=== PATIENT | female | born 1950 | race Hispanic/Latino ===

== ENCOUNTER 2023-02-26 11:38 | Emergency (ER) | payer OTHER, MEDICARE ==
[~2023-02-26] VITALS: Ht 177.8 cm; Wt 63.5 kg
[2023-02-26] MEDS ORDERED: AMOX-427 PO (14:02)
[2023-02-26] MEDS ORDERED: IBUP-2077 PO (14:02)
[2023-02-26 14:19] VITALS: BP 164/72; PULSE 73; RESP 16; O2SAT 97
== END 2023-02-26 14:28 | disposition home or self-care (01) ==
LOC: EDH 11:38
DX: K04.7 Periapical abscess without sinus (principal); I10 Essential (primary) hypertension; E78.00 Pure hypercholesterolemia, unspecified; Z90.710 Acquired absence of both cervix and uterus

== ENCOUNTER → 2024-02-07 | Outpatient (CLI) | payer OTHER, MEDICARE ==
[~2024-02-07] MED LIST: AMOX-427 PO; IBUP-2077 PO
[2024-02-07 12:18] LABS: CREATININE 0.8 mg/dL (0.5-1.0)
== END | disposition home or self-care (01) ==
LOC: LAB 11:15
PROVIDERS: ATTEND Student in an Organized Health Care Education/Training Program
DX: R26.81 Unsteadiness on feet (principal)
CPT/HCPCS: 36415; 80048

== ENCOUNTER → 2024-02-22 | Outpatient (CLI) | payer OTHER, MEDICARE ==
[~2024-02-22] MED LIST changes: +GADOTERATE MEGLUMINE 10 MMOL/20 ML VIAL IV ONE
== END | disposition home or self-care (01) ==
LOC: RAH 08:53
PROVIDERS: ATTEND Student in an Organized Health Care Education/Training Program
DX: G35 Multiple sclerosis (principal); R26.81 Unsteadiness on feet
CPT/HCPCS: 70553; A9575

== ENCOUNTER → 2024-04-17 | Outpatient (CLI) | payer OTHER, MEDICARE ==
[~2024-04-17] MED LIST changes: -GADOTERATE MEGLUMINE 10 MMOL/20 ML VIAL IV ONE
[2024-04-17 16:49] LABS: ALBUMIN 3.5 g/dL (3.5-5.0); BILIRUBIN,TOTAL 0.6 mg/dL (0.2-1.0); CREATININE 0.9 mg/dL (0.5-1.0); POTASSIUM 4.2 mmol/L (3.5-5.1); TOTAL PROTEIN, SERUM 8.6 g/dL (6.0-8.3)
== END | disposition home or self-care (01) ==
LOC: LAB 14:15
PROVIDERS: ATTEND Student in an Organized Health Care Education/Training Program
DX: R53.83 Other fatigue (principal)
CPT/HCPCS: 36415; 80053

== ENCOUNTER → 2024-04-25 | Outpatient (CLI) | payer OTHER, MEDICARE ==
[~2024-04-25] MED LIST changes: +IOHEXOL 350 MG/ML 100ML INFUS..BTL IV ONE
--- NOTE | 2024-04-25 11:25 | HMCIMG ---
CT CARDIAC ANGIO W/CONT. CCTA HISTORY: 60 COMPARISON: None TECHNIQUE: Multiple sequential axial images of the chest were obtained along with the CT angiogram of the chest study. Patient was given 100 cc of Omnipaque through intravenous route. FINDINGS: There is no evidence of pulmonary nodule or parenchymal disease. No pleural effusion or pericardial effusion is seen. There is no evidence of pneumothorax. There are normal size mediastinal and hilar lymph nodes. The heart is not enlarged. Degenerative changes of the thoracolumbar spine are present. IMPRESSION: 1. No evidence of pulmonary nodule or effusion is seen. Please see CT angiogram report of coronary arteries.
== END | disposition home or self-care (01) ==
LOC: RAH 09:56
PROVIDERS: ATTEND Student in an Organized Health Care Education/Training Program
DX: R53.83 Other fatigue (principal); M47.815 Spondylosis without myelopathy or radiculopathy, thoracolumbar region
CPT/HCPCS: 75574; Q9967

== ENCOUNTER 2024-12-03 18:09 | Emergency (ER) | payer MEDICARE ==
[~2024-12-03] VITALS: Ht 152.4 cm; Wt 71.2 kg
[~2024-12-03 18:09] MED LIST changes: -IOHEXOL 350 MG/ML 100ML INFUS..BTL IV ONE
--- NOTE | 2024-12-03 18:36 | ERN ---
ED Note History of Present Illness Stated Complaint: ALLERGIC REACTION Chief Complaint: Allergic Reaction Time Seen by MD: 18:14 Time Seen by Midlevel: 18:14 Dictation: Patient is a 74-year-old female with a history of hypertension who presents to the emergency department with complaints of wounds to the left side of her face onset Monday. Patient reports wound as painful when burning. Denies any trauma, denies any fevers. Allergies: Coded Allergies: No Known Drug Allergies (Unverified Allergy, Unknown, 02/26/23) Home Meds Active Scripts Prednisone (Prednisone) 50 Mg Tablet, 1 TAB PO DAILY for 7 Days, #7 TAB 0 Refills Prov:MCNALLYLISA JUSTICE HOSTLER HELPER 12/03/24 Valacyclovir HCl (Valacyclovir) 1,000 Mg Tablet, 1 TAB PO TID for 7 Days, #21 TAB 0 Refills Prov:MCNALLY,LISA HOSTLER HELPER 12/03/24 Ibuprofen (Ibuprofen 800 mg Tab) 800 Mg Tab, 800 MG PO Q6H PRN for PAIN, #30 TAB Prov:JANNET GALEANO MD 02/26/23 Amoxicillin/Potassium Clav (Augmentin Xr 1,000-62.5 Tab) 1,000 Mg-62.5 Mg Tab.er.12h, 1 EACH PO BID for 7 Days, #14 TAB Prov:JANNET GALEANO MD 02/26/23 Past Medical History Past Medical History: High Cholesterol, Hypertension Surgical History: Hysterectomy Social History: Negative RN Note Reviewed/Agreed w/PFSH: Yes Review of System Dictation Constitutional: Negative for fever,chills, and weight loss Eyes: Negative for injury, pain,redness, and discharge ENT: Negative for injury,pain or swelling Cardiovascular: Negative for chest pain, palpitations, and edema Respiratory: Negative for shortness of breath, cough, and wheezing, Abdomen/GI: Negative for abdominal pain, nausea, vomiting, diarrhea, and constipation Back: Negative for injury and pain : Negative for injury, bleeding and discharge MS/Extremity: Negative for injury and deformity Skin: Negative for rash, and discoloration positive for left-sided facial rash Neuro: Negative for headache, weakness, numbness, tingling, and seizure Psych: Negative for suicide ideation, homicidal ideation, and hallucinations Initial Vital Sign VS Vital Signs Date Time Temp Pulse Resp B/P (MAP) Pulse Ox O2 Delivery O2 Flow Rate FiO2 12/03/24 18:15 98.6 88 18 188/72 98 12/03/24 18:15 Room Air* 0 21 Physical Exam Dictation Vital Signs reviewed General Appearance: Alert, oriented x 3, no acute distress, well developed, nourished. Head and Face: non-traumatic. Eyes: PERRL, pink conjunctivas, eyelid no trauma, anterior chamber with arcus senilis. Ears: Pinnas intact and no signs of trauma or erythema ear canals clear and no discharge TM no erythema Nose: No discharge, no bleeding. Oropharynx: Mouth normal, tongue pink. pharynx clear,no erythema, tonsils no exudates, no abscesses noted, mucous membrane moist Neck: Supple, non-tender, no thyromegaly, no masses, no JVD, no bruits Breast:Deferred Chest:No tenderness, no crepitus, no paradoxical movement, no retractions Lungs:Clear, well-ventilated, symmetric, no rales, no wheezing, no rhonchi, no stridor, good breath sounds bilaterally Heart: Regular rate, regular rhythm, no murmur, no gallops Vascular: no peripheral edema, Abdomen: Soft, positive bowel sounds, nondistended, no guarding, nontender, no rebound, no masses no hepatomegaly, no splenomegaly, no Blount's sign, no hernias. Rectal: Deferred Genital: Deferred Neurological: Normal speech, motor function intact, sensory function intact Musculoskeletal: Neck nontender, full range of motion, back nontender, full range of motion, Extremities: nontender, full range of motion Skin: Color pink, dry, no turgor,, no lacerations, no abrasions, no contusions. Vesicular wounds noted to left side facial area V1, V3 dermatomes, mild swelling to left lower lip Lymphatic: Deferred Results (Laboratory/Radiology) Labs Reviewed?: Yes ED Course ED Course Orders Procedure Category Date Status Time Methylprednisolone PHA 12/03/24 Complete Succ 125mg (Solu-Medr 18:30 Valacyclovir Hcl PHA 12/03/24 Complete (Valtrex) 18:30 Tetracaine Hcl PHA 12/03/24 Complete (Pontocaine 0.5% 18:30 Fluorescein Sodium PHA 12/03/24 Complete (Wleod-K-Rdcld At) 18:30 Ketorolac 60mg/2ml PHA 12/03/24 Complete (Toradol 60mg/2ml) 18:30 Methylprednisolone PHA 12/03/24 In Process Succ 125mg (Solu-Medr 20:00 Current Medications Medications (Trade) Dose Ordered Sig/Bhavya Route PRN Reason Start Time Stop Time Status Last Admin Dose Admin Fluorescein Sodium (Kdtqf-L-Nrisy At) 1 strip ONCE ONCE OP 12/03/24 18:30 12/03/24 18:34 DC 12/03/24 19:04 Ketorolac Tromethamine (toRADol 60MG/ 2ML) 30 mg ONCE ONCE IM 12/03/24 18:30 12/03/24 18:34 DC 12/03/24 19:04 Methylprednisolone Sodium Succinate (Solu-medROL 125MG) 125 mg ONCE ONCE IM 12/03/24 18:30 12/03/24 18:34 DC Methylprednisolone Sodium Succinate (Solu-medROL 125MG) 125 mg ONCE ONCE IM 12/03/24 20:00 12/03/24 20:01 12/03/24 19:47 Tetracaine HCl (Pontocaine 0.5% Ophth Soln) 1 OR 2 DROPS ONCE ONCE OP 12/03/24 18:30 12/03/24 18:34 DC 12/03/24 19:04 Valacyclovir HCl (ValtREX) 1,000 mg ONCE ONCE PO 12/03/24 18:30 12/03/24 18:34 DC 12/03/24 19:03 Vital Signs Date Time Temp Pulse Resp B/P (MAP) Pulse Ox O2 Delivery O2 Flow Rate FiO2 12/03/24 18:15 98.6 88 18 188/72 98 Room Air* 0 21 12/03/24 18:15 98.6 88 18 188/72 98 Medical Decision Making MDM Patient is a 74-year-old female with a history of hypertension who presents to the emergency department with complaints of wounds to the left side of her face onset Monday. Patient reports wound as painful when burning. Denies any trauma, denies any fevers. Patient's wound consistent with shingles. No lesions noted to eye on eye exam. Patient will be started on valacyclovir. Patient instructed to follow up with PCP. On physical exam patient is in no acute distress. No other lesions noted on the rest of the body. Differential diagnosis: Facial cellulitis, shingles, allergic reaction Need for hospitalization: Patient does not meet criteria for hospitalization. There are no social concerns with this patient. DX & DISP Disposition: Discharge Departure Impression: Primary Impression: Shingles Condition: Stable Scripts Valacyclovir HCl (Valacyclovir) 1,000 Mg Tablet 1 TAB PO TID for 7 Days, #21 TAB 0 Refills Prov: MCNALLY,LISA JACOBSON 12/03/24 Additional Instructions: Your lesions are consistent with shingles which is a virus called varicella zoster virus. Please avoid any people who are , premature baby's or anyone with a weak immune system. Make sure you wash your hands if you touch your face. Shingles can be contagious. Take your medications as prescribed. Make sure you follow up with your primary doctor. Follow up with Ophthalmology. FOLLOW-UP WITH PRIMARY CARE PROVIDER IN 1 TO 2 DAYS. TAKE MEDICATIONS DIRECTED HERE IN THE EMERGENCY ROOM. OKAY TO CONTINUE HOME MEDICATIONS UNLESS OTHERWISE DISCUSSED DURING YOUR VISIT IN THE EMERGENCY ROOM TODAY. RETURN TO YOUR NEAREST EMERGENCY ROOM IF SYMPTOMS WORSEN OR IF THERE IS NO IMPROVEMENT. CALL 911 IF YOU NEED IMMEDIATE ASSISTANCE. TAKE TYLENOL [id number] NEEDED AND IF NO CONTRAINDICATIONS ARE PRESENT. INCREASE ORAL HYDRATION. A WOUND CULTURE OR URINE CULTURE WAS ORDERED HERE IN THE EMERGENCY ROOM DEPARTMENT PLEASE FOLLOW-UP WITH PRIMARY CARE PROVIDER AND ADVISE THEM TO GET REPEAT PORTS FROM OUR FACILITY. IF YOU HAD ANY JENNIFER WRAP/SPLINTS THAT WERE APPLIED HERE, PLEASE DO NOT REMOVE THEM UNTIL YOU SEE YOUR PRIMARY CARE OR SPECIALTY. Referrals: VANESSA ELLIS DO (PCP) Time of Disposition: 19:31 I have examined patient, & reviewed all documents, & agreed W/ the Diagnosis, and Plan LISA MCNALLY Dec 03, 2024 18:36
[2024-12-03] MEDS: FLUORESCEIN SODIUM 1 STRIP STRIP OP ONE (19:04)
[2024-12-03] MEDS: TETRACAINE HCL 0.5% 4 ML OPHTH SOLN OP ONE (19:04)
[2024-12-03] MEDS ORDERED: PRED50TA2 PO (19:31)
[2024-12-03] MEDS ORDERED: VALA100031 PO (19:31)
--- NOTE | 2024-12-03 19:51 | NUR ---
PT ON ORAL PREDNISONE AT HOME. SOLUMEDROL ORDER CANCELLED PER ER HABITAT MANAGEMENT COORDINATOR.
[2024-12-03 19:52] VITALS: BP 162/68; PULSE 82; RESP 18; TEMP 98.6; O2SAT 98
== END 2024-12-03 19:54 | disposition home or self-care (01) ==
LOC: EDH 18:09
DX: B02.9 Zoster without complications (principal); E78.00 Pure hypercholesterolemia, unspecified; I10 Essential (primary) hypertension; Z79.52 Long term (current) use of systemic steroids; Z79.624 Long term (current) use of inhibitors of nucleotide synthesis; Z90.710 Acquired absence of both cervix and uterus
CPT/HCPCS: 99283; 96372; J1885; J2919